=== PATIENT | female | born 1970 | race Caucasian/White ===

== ENCOUNTER → 2020-12-10 12:05 | Outpatient (CLI) | payer OTHER, SELFPAY ==
--- NOTE | ~2020-12-10 | MM_ITS ---
EXAMINATION: MM scrn luh implant BI w [place] HISTORY: Screening mammogram TECHNIQUE: Craniocaudal and mediolateral oblique 3-D tomosynthesis images with implant displacement a nd synthetic 2-D images were generated. Craniocaudal and mediolateral oblique views of the breasts wi thout implant displacement were obtained using full field digital mammography. CAD analysis was submi tted and interpreted. COMPARISON: 07/18/2019, 06/21/2018, 05/13/2017 bilateral implant digital screening mammogram examinatio ns BREAST PARENCHYMAL COMPOSITION: The breasts are heterogeneously dense, which may obscure small masses . FINDINGS: Status post bilateral augmentation mammoplasty. There is no evidence of suspicious mass, ca lcification, or architectural distortion to suggest malignancy in either breast. There has been no short spicious interval change. IMPRESSION: 1. No mammographic evidence of malignancy. 2. Recommend routine screening mammography in one year. BI-RADS Category 1: Negative Reviewed, dictated and finalized at location A.
== END ==
PROVIDERS: Visit Provider Nurse Practitioner
DX: Z12.31 Encounter for screening mammogram for malignant neoplasm of breast (principal)
CPT/HCPCS: 77063; 77067

== ENCOUNTER → 2022-01-08 08:16 | Outpatient (CLI) | payer OTHER, SELFPAY ==
--- NOTE | ~2022-01-08 | MMUS_ITS ---
EXAMINATION: MM diag luh implant BI w [place], US breast BI complete HISTORY: Right breast 1:00 mass TECHNIQUE: Right spot compression ML and CC implant displaced views and implant displaced 3-D tomosyn thesis images and implant views of both breasts were performed and synthetic 2-D images were generate d. Complete bilateral breast ultrasound including all 4 quadrants and subareolar areas was performed. CAD analysis was submitted and interpreted. COMPARISON: , 07/18/2019, 06/21/2018 bilateral implant screening mammogram examinations BREAST PARENCHYMAL COMPOSITION: The breasts are heterogeneously dense, which may obscure small masses . BILATERAL MAMMOGRAM FINDINGS: Status post bilateral augmentation mammoplasty. An approximately 9 mm new asymmetric density is noted in the upper right breast on screening MLO view , not definitely confirmed on CC view. The heterogeneously dense stroma may obscure a mass on either side. Bilateral complete breast ultraso und examination was performed. No malignant calcification, skin thickening or retraction of either breast is detected. BILATERAL ULTRASOUND FINDINGS: Right breast: 1:00 9 cm from nipple at area of clinical complaint of palpable lump: There is irregular hypoechoic m ass measuring up to 1.3 x 6.5 mm, with internal vascularity and posterior shadowing, highly suggestiv e of malignancy. Ultrasound-guided biopsy is recommended. 2:00 3 cm from nipple: Parallel circumscribed multiply septated dictated cyst with through transmissi on, benign in appearance 3:00 3 cm from nipple: Parallel circumscribed 3.3 x 7.5 mm septated cyst 8:00 7 cm from nipple: Parallel circumscribed 2.7 x 9 mm septated cyst 9:00 9 cm from nipple: Parallel circumscribed 2.5 x 8 mm hypoechoic lesion with suggestion of vascula r fatty hilus, suggestive of a lymph node. Left breast: 12:00 4 cm from nipple: Parallel circumscribed 3.3 x 1.5 x 3.6 mm sonolucency without internal vascul arity or shadowing, likely a small cyst 1:00 3 cm from nipple: 2.5 x 1.5 mm cyst 1:00 9.5 cm from nipple: Parallel circumscribed hypoechoic lesion measuring 2.7 x 5.8 x 4.8 mm, witho ut internal vascularity or posterior shadowing, likely benign 2:00 6 cm from nipple: 3.7 x 2.7 x 4.7 mm cyst 2:00 5 cm from nipple: Parallel circumscribed 2.3 x 4.7 x 4.5 mm cyst 3:00 6 cm from nipple: Benign-appearing 3.3 x 8 mm lymph node 7:00 3 cm from nipple: Parallel circumscribed hypoechoic lesion without internal vascularity or poste rior shadowing, likely benign IMPRESSION: 1. Right breast 1:00 irregular hypoechoic vascular mass with posterior shadowing, highly suggestive o f malignancy 2. Ultrasound-guided biopsy of right breast 1:00 lesion is recommended BI-RADS category 5, highly suggestive of malignancy. Dr. King telephoned the BI-RADS Category 5 report and recommendation for ultrasound-guided biopsy of right breast 1:00 mass on 01/08/[address] Ridley's AUDIT INTER[employer]. Reviewed, dictated and finalized at location A. IMPRESSION: 1. Right breast 1:00 irregular hypoechoic vascular mass with posterior shadowin g, highly suggestive of malignancy 2. Ultrasound-guided biopsy of right breast 1:00 lesion is recommended BI-RADS category 5, highly suggestive of malignancy. Dr. King telephoned the BI-RADS Category 5 report and recommendation for ultras ound-guided biopsy of right breast 1:00 mass on 01/08/[address] Jacob lr's AUDIT [employer].
== END ==
PROVIDERS: PCP Family Medicine; Visit Provider Obstetrics & Gynecology Gynecology
DX: N63.10 Unspecified lump in the right breast, unspecified quadrant (principal); R92.8 Other abnormal and inconclusive findings on diagnostic imaging of breast
CPT/HCPCS: 76641; 77062; 77066; G0279

== ENCOUNTER 2023-01-08 14:48 | Emergency (ER) | payer OTHER, SELFPAY ==
[2023-01-08 14:59] VITALS: BP 121/90; PULSE 88; RESP 16; TEMP 36.2; O2SAT 99
--- NOTE | 2023-01-08 15:11 | ED.SKABFB ---
HPI - Skin/Abscess/Foreign Bdy General Chief complaint: Skin/Abscess/Foreign Body Stated complaint: Insect Bite Rt Calf Time Seen by Provider: 01/08/23 15:02 Source: patient and RN notes reviewed Mode of arrival: ambulatory Limitations: no limitations History of Present Illness HPI narrative: Patient presents today complaining of an insect bite to her right calf that was sustained on 12/24/2022. At that time she had several ticks on her in is unsure if this area is an area where she removed a tick from since that time this area has been itching, red, and has become warm to touch. Denies fever. She has been applying hydrocortisone with relief of itching, but not of the redness. Related Data Allergies Allergy/AdvReac Type Severity Reaction Status Date / Time Sulfa (Sulfonamide AdvReac Mild Rash Verified 01/08/23 14:53 Antibiotics) Review of Systems Review of Systems: CONSTITUTIONAL: Denies body aches, fever, chills, or sweats. EYES: Denies visual changes, redness, or discharge. ENT: Denies rhinorrhea, congestion, sore throat, or otalgia. CARDIOVASCULAR: Denies chest pain, palpitations, or edema. RESPIRATORY: Denies cough or dyspnea. GASTROINTESTINAL: Denies abdominal pain, nausea, vomiting, or diarrhea. GENITOURINARY: Denies dysuria or hematuria. SKIN: + insect bite to right calf MUSCULOSKELETAL: Denies back pain, joint pain, or myalgia. NEUROLOGIC: Denies headache, numbness, tingling, or weakness. PSYCH: Denies depression or anxiety. PMFSH Family History Family History Other Diabetes mellitus Family history of Alzheimer's disease Family history of elevated blood lipids Hypertension Social History Social History Smoking status: Never smoker Alcohol intake: current Comments At time of signature, I have reviewed and agree with nursing past medical, surgical, social and family history unless otherwise noted. Please see nursing chart for further information. There is no relevant family history pertinent to the presenting complaint Exam Narrative: GENERAL: Well-appearing, well-nourished, and in no acute distress. HEAD: Normocephalic, atraumatic. EYES: EOMI. No redness or drainage. Conjunctivae normal. ENT: Mucous membranes pink and moist. NECK: Normal AROM. CHEST: No respiratory distress. EXTREMITIES: Normal range of motion. No edema. SKIN: Warm, dry, no rash. Capillary refill normal. Normal skin turgor. 6 x 4 cm round area of erythema with central clearing and a tiny central scab to the right calf. No induration or edema noted. Distal sensation intact. Capillary refill normal. NEURO: No focal deficits. Alert and oriented x3. Gait steady. PSYCH: Normal affect. No signs of depression or anxiety. Course Course Level of Care: Express Care Visit Vital Signs Vital signs: Vital Signs Temperature 97.1 F L 01/08/23 14:59 Pulse Rate 88 01/08/23 14:59 Respiratory Rate 16 01/08/23 14:59 Blood Pressure 121/90 01/08/23 14:59 Pulse Oximetry 99 01/08/23 14:59 Oxygen Delivery Room Air 01/08/23 14:59 Temperature 97.1 F L 01/08/23 14:59 Pulse Rate 88 01/08/23 14:59 Respiratory Rate 16 01/08/23 14:59 Blood Pressure 121/90 01/08/23 14:59 Pulse Oximetry 99 01/08/23 14:59 Oxygen Delivery Room Air 01/08/23 14:59 Reviewed. Pt has been instructed to follow up with her PCP regarding her elevated blood pressure today. MDM - Skin/Abscess/Foreign Bdy MDM Narrative Medical decision making narrative: Will treat patient with doxycycline for skin infection vs tick-borne infection. Anticipatory guidance given. Differential Diagnosis Differential diagnosis: Likely abscess of skin or subcutaneous tissue, dermatophytosis, cellulitis, eczema, insect bites, impetigo and contact dermatitis Critical Care Time Critical Care Time Critical Care Ti
== END 2023-01-08 15:18 | disposition home or self-care (01) ==
PROVIDERS: Emergency Provider Nurse Practitioner; PCP Family Medicine
DX: S80.861A Insect bite (nonvenomous), right lower leg, initial encounter (principal); W57.XXXA Bitten or stung by nonvenomous insect and other nonvenomous arthropods, initial encounter
CPT/HCPCS: 99213; G0463